=== PATIENT | female | born 1985 | race African-American/Black ===

== ENCOUNTER 2017-04-21 21:06 | Emergency (ER) | payer OTHER ==
[~2017-04-21] VITALS: Ht 167.6 cm; Wt 80.7 kg
--- NOTE | ~2017-04-21 | EKG ---
[address] [address] ELECTROCARDIOGRAM REPORT Name: BHUMIKAMICK JENNY Room #: DEP [id number] Admission: 04/21/17 Attend Phys: Discharge: 04/22/17 Date of : 89 Report #: [id number] THIS REPORT FOR: //name// [facility] ED Test Date: 2017-04-21 Test Time: 22:06:30 Pat Name: MICK BAI Department: Room: Gender: F Sales Expert: SHALOM : 1985 Requested By: Michel Banks Order Number: [id number] MD: Daren Blum Measurements Intervals [place] Rate: 67 P: 41 PA: 158 QRS: 14 QRSD: 85 T: 27 QT: 391 QTc: 413 Interpretive Statements Sinus rhythm No previous ECG available for comparison Electronically Signed On 04-26-2017 21:46:17 CDT by Daren Blum [email or web address] <ELECTRONICALLY SIGNED> By: Daren Blum MD 04/26/17 2146 [id number] 2206 Daren Blum MD /REJI
[~2017-04-21 21:06] MED LIST: CIPROFLOXACIN500 M1 PO; COLACE100 MG PO; DIFLUCAN150 MG PO; FLAGYL500 MG PO; FOLIC ACID1 MG PO; IBUPROFEN 800800 MG PO; IBUPROFEN200 M2 PO; IRON325 PO; MACROBID 100 M100 M1 PO; NAPROSYN500 MG PO; NOHOMEMEDICATIONS; NORCO 5-325 TA1 EACH PO; NORFLEX100 MG PO; PROMETHAZINE-C120 ML PO; PYRIDIUM200 MG PO; TRAMADOL 50 MG50 MG PO; TRINATE TABLET1 TAB PO; Tamiflu PO
[2017-04-21 22:17] LABS: URINE BILIRUBIN NEGATIVE (Negative); URINE BLOOD 3+ (Negative); URINE COLOR YELLOW; URINE GLUCOSE-RANDOM* NEGATIVE (Negative); URINE KETONES NEGATIVE (Negative); URINE LEUKOCYTES-REFLEX NEGATIVE (Negative); URINE PROTEIN (DIPSTICK) 2+ (Negative); URINE SPECIFIC GRAVITY 1.015 (1.003-1.035); URINE UROBILINOGEN 0.2 E.U./dl (0.2-1.0)
[2017-04-21 22:24] LABS: AMP/METHAMP Negative (Negative); BARBITURATES Negative (Negative); BENZODIAZEPINES Negative (Negative); COCAINE Negative (Negative); METHADONE Negative (Negative); OPIATES Negative (Negative); PCP Negative (Negative); THC Negative (Negative)
[2017-04-21 22:25] LABS: ABSOLUTE NEUTROPHILS 3.3 thou/uL (1.4-8.2); BASOPHILS 0.3 % (0.0-2.0); EOSINOPHILS 1.6 % (0.0-3.0); HEMATOCRIT 34.8 % (37.0-47.0); HEMOGLOBIN 11.8 gm/dL (12.0-15.0); MCH 26.8 pg (26.0-34.0); MCV 78.7 fL (80.0-100.0); MONOCYTES 6.4 % (1.0-8.0); PLATELET COUNT 188 thou/uL (150-400); POLYS 45.7 % (36.0-66.0); RBC 4.42 mil/uL (4.20-5.00); RDW 14.9 % (10.5-14.5); WBC 7.2 thou/uL (4.0-11.0)
[2017-04-21 22:26] LABS: MANUAL DIFF NO
[2017-04-21 22:31] LABS: CASTS None Seen /LPF (None Seen); CRYSTALS None Seen /LPF (None Seen); SQUAMOUS 0-3 Few /LPF (0-3); URINE RBC 3-10 Few /HPF (0-2); URINE WBC-REFLEX None Seen /HPF (0-5)
[2017-04-21 22:33] LABS: ANION GAP 7 mmol/L (7-16); BUN 8 mg/dL (7-18); CALCIUM 9.2 mg/dL (8.5-10.1); CHLORIDE 104 mmol/L (98-107); CO2 26 mmol/L (21-32); CREATININE 0.7 mg/dL (0.6-1.0); GLUCOSE 94 mg/dL (74-106); POTASSIUM 3.9 mmol/L (3.5-5.1); SODIUM 137 mmol/L (136-145)
[2017-04-21 22:39] LABS: APTT 28.7 Seconds (24.5-32.8); PROTIME 9.5 Seconds (9.3-11.4)
[2017-04-21 22:44] LABS: ALBUMIN 3.6 g/dL (3.4-5.0); ALKALINE PHOSPHATASE 40 U/L (46-116); MAGNESIUM 1.6 mg/dL (1.8-2.4); NT-PRO BRAIN NAT PEPTIDE 8 pg/mL (<300); SGOT 30 U/L (15-37); SGPT 23 U/L (30-65); TOTAL BILIRUBIN 0.2 mg/dL (<0.1-1.0); TOTAL PROTEIN 8.1 g/dL (6.4-8.2); TROPONIN-I < 0.04 ng/mL (<0.04-0.07)
[2017-04-21] MEDS ORDERED: ATIVAN0.5 MG PO (23:41)
[2017-04-21 23:49] VITALS: BP 130/90
== END 2017-04-22 | disposition home or self-care (01) ==
LOC: ER 21:06
PROVIDERS: Emergency Medicine
DX: F41.9 Anxiety disorder, unspecified (principal); F10.99 Alcohol use, unspecified with unspecified alcohol-induced disorder; Z87.891 Personal history of nicotine dependence

== ENCOUNTER 2018-06-27 14:01 | Emergency (ER) | payer OTHER ==
[~2018-06-27] VITALS: Ht 167.6 cm; Wt 76.2 kg
[~2018-06-27 14:01] MED LIST changes: +ATIVAN0.5 MG PO
[2018-06-27 14:02] VITALS: BP 129/85
[2018-06-27] MEDS ORDERED: JUNEL FE 1-201 EACH PO (14:15)
[2018-06-27] MEDS ORDERED: NAPROSYN500 MG PO (14:47)
[2018-06-27] MEDS ORDERED: NORFLEX100 MG PO (14:47)
== END 2018-06-27 15:04 | disposition home or self-care (01) ==
LOC: ER 14:01
DX: J02.9 Acute pharyngitis, unspecified (principal); M43.6 Torticollis

== ENCOUNTER 2020-03-27 09:35 | Emergency (ER) | payer OTHER ==
[~2020-03-27] VITALS: Ht 167.6 cm; Wt 69.0 kg
[~2020-03-27 09:35] MED LIST changes: +JUNEL FE 1-201 EACH PO
[2020-03-27 09:42] VITALS: BP 127/84
[2020-03-27 10:35] LABS: ABSOLUTE NEUTROPHILS 2.7 thou/uL (1.4-8.2); BASOPHILS 0.5 % (0.0-2.0); EOSINOPHILS 0.7 % (0.0-3.0); HEMATOCRIT 36.4 % (37.0-47.0); HEMOGLOBIN 12.9 gm/dL (12.0-15.0); LYMPHOCYTES 33.2 % (24.0-44.0); MCH 30.1 pg (26.0-34.0); MCHC 35.4 g/dL (28.0-37.0); MCV 85.1 fL (80.0-100.0); MONOCYTES 7.1 % (1.0-8.0); POLYS 58.5 % (36.0-66.0); RBC 4.28 mil/uL (4.20-5.00); RDW 14.1 % (10.5-14.5); WBC 4.6 thou/uL (4.0-11.0)
[2020-03-27 10:45] LABS: ANION GAP 9 mmol/L (7-16); BUN 7 mg/dL (7-18); CALCIUM 8.8 mg/dL (8.5-10.1); CHLORIDE 103 mmol/L (98-107); CO2 25 mmol/L (21-32); CREATININE 0.7 mg/dL (0.6-1.0); GLUCOSE 91 mg/dL (74-106); POTASSIUM 3.5 mmol/L (3.5-5.1); SODIUM 137 mmol/L (136-145)
[2020-03-27 10:55] LABS: ALBUMIN 3.8 g/dL (3.4-5.0); SGOT 15 U/L (15-37); SGPT 15 U/L (30-65); TOTAL BILIRUBIN 0.5 mg/dL (0.2-1.0); TOTAL PROTEIN 7.9 g/dL (6.4-8.2); TROPONIN-I <0.06 ng/mL (<0.06)
[2020-03-27 10:59] LABS: APTT 31.9 Seconds (24.5-32.8)
[2020-03-27 11:28] LABS: PLATELET COUNT 184 thou/uL (150-400)
--- NOTE | 2020-03-27 16:37 | EKG ---
[facility] [place] [address] ELECTROCARDIOGRAM REPORT Name: MICK BAI Room #: 170-10 ADM IN M.R.#: [id number] Admission: 03/27/20 Attend Phys: Vinnie Briggs MD Discharge: Date of : 89 Report #: [id number] THIS REPORT FOR: cc: Aye Pham DNP, Mary E. DNP Lundgren, Craig H. MD [facility] ~ THIS REPORT FOR: //name// [facility] ED Test Date: 2020-03-27 Test Time: 10:21:57 Pat Name: MICK BAI Department: Room: 170 Gender: F Line Assembler: izzy : 1985 Requested By: Felton Iqbal Order Number: [id number] MD: Castro Sullivan Measurements Intervals [place] Rate: 66 P: 60 MS: 146 QRS: 38 QRSD: 80 T: 54 QT: 381 QTc: 400 Interpretive Statements Sinus rhythm Normal tracing Compared to ECG 04/21/2017 22:06:30 No significant changes Electronically Signed On 03-27-2020 16:36:57 CDT by Castro Sullivan [email or web address] <ELECTRONICALLY SIGNED> By: Castro Sullivan MD, [facility] 03/27/20 1636 1021 1021 Castro Sullivan MD, [facility] /EPI
[2020-03-27 17:54] VITALS: BP 143/79
--- NOTE | 2020-03-28 07:33 | NUR ---
ORDERS FOR EVAL AND TREAT HOWEVER Pt LEFT AMA FROM E.R.
--- NOTE | 2020-03-28 07:34 | NUR ---
PATIENT LEFT THE HOSPITAL AMA BEFORE O.T. EVALUATION WAS COMPLETED ORDERED.
--- NOTE | 2020-03-31 10:46 | HC ---
[facility] [place] [address] [place] [address] CONSULTATION Name: MICK BAI Room #: DEP Brie#: [id number] Admission: 03/27/20 Attend Phys: Discharge: 03/27/20 Date of : 89 Report #: [id number] THIS REPORT FOR: cc: Aye Pham DNP, Mary E. DNP Khosla, Parveen K. MD ~ CC: Aye Iqbal DATE OF SERVICE: 03/27/2020 HISTORY OF PRESENT ILLNESS: This is a 34-year-old female patient who was seen by me for somewhat of an unusual symptoms. History is not clearly defined. She tells me she has hypersensitivity in the left leg, mainly in the L5 distribution. Then, she tells me that she also had symptoms on the left upper extremity. Symptom in the lower extremities is going on for about couple of days. Symptom in the upper extremity is going on longer than that. She has a longstanding history of anxiety. She takes lorazepam for that. REVIEW OF SYSTEMS: Negative for any stroke in the past. She does not give any other symptoms to suggest multiple sclerosis. As mentioned above, she does have a history of anxiety. She is on control pills, but has not caused any problem according to her. Rest of the 14-point review of system was unremarkable. PAST MEDICAL HISTORY: Negative for any stroke. FAMILY HISTORY: Positive for early age stroke, but further history is not clear. SOCIAL HISTORY: The patient says she has history of smoking, but she drinks alcohol very occasionally. PHYSICAL EXAMINATION: Indicate that she is alert, responsive, able to follow simple and complex command. Her speech looks intact. Cranial nerve examination 2-12 does not appear to be showing any definite abnormality. Objectively when she gives a good effort, her sensation, reflexes and tone is symmetrical. She does not have any long tract sign and she does not have any hyperreflexia. Plantar is difficult to tell on both sides, but it is not upgoing. Her position sense is normal in the lower extremities. I could not look at the fundus. There is no meningeal sign. There is no carotid bruit. Blood pressure is about 129/72, respirations 19, pulse is 68. LABORATORY DATA: White count is 4.6. She did have a CT scan of the head that was reviewed and that showed no abnormality. [address] [address] CONSULTATION Name: MICK BAI JENNY Room #: DEP Brie#: [id number] Admission: 03/27/20 Attend Phys: Discharge: 03/27/20 Date of : 89 Report #: [id number] IMPRESSION: Difficult to form in this patient. I discussed with her that we will try to exclude anything serious like multiple sclerosis or radiculopathy. Symptoms can also be because of anxiety. However, symptoms are unilateral and focal and therefore organic pathology must be excluded before considering the diagnosis of anxiety even if she has a history of anxiety. Therefore, the plan is to exclude the possibility of MS and radiculopathy. That will be the main differential in this patient. I will suggest starting with an MRI of the brain and MRI of the lumbar spine. Further workup will depend upon the outcome. The patient has further question about staying. My feeling was that we should go ahead and do the work up since she is young as an inpatient, but the patient wanted to talk to Dr. Iqbal and he was with the patient. I asked the nurses to talk to the patient what she wants to do and go from there and the nurses are going to do that. They can also call them if they have any question. I recommended that she get the workup done as an inpatient, but she is competent to make her decision and see what she says and we will await her conversation with Dr. Iqbal. <ELECTRONICALLY SIGNED> By: Bryce Galarza MD 03/31/20 1046 1332 1346 Bryce Galarza MD /nt
== END 2020-03-27 17:55 | disposition left against medical advice (07) ==
LOC: ER 09:35 → EROBS 14:28 → ER 14:28 → EROBS 17:55
PROVIDERS: Emergency Medicine
DX: R53.1 Weakness (principal); R20.0 Anesthesia of skin; R20.2 Paresthesia of skin; F41.9 Anxiety disorder, unspecified; F17.210 Nicotine dependence, cigarettes, uncomplicated; Z79.899 Other long term (current) drug therapy

== ENCOUNTER → 2020-08-07 | Outpatient (CLI) | payer OTHER | LOC: LAB 10:40 | PROVIDERS: ATTEND Nurse Practitioner | DX: Z20.828 Contact with and (suspected) exposure to other viral communicable diseases (principal) ==

== ENCOUNTER 2021-05-29 05:53 | Emergency (ER) | payer OTHER ==
[~2021-05-29] VITALS: Ht 167.6 cm; Wt 69.0 kg
[2021-05-29] MEDS ORDERED: EPIPEN 2-P0.3 MG/0.3 IM (10:11)
[2021-05-29 10:12] VITALS: BP 129/90
== END 2021-05-29 10:12 | disposition home or self-care (01) ==
LOC: ER 05:53
DX: L50.9 Urticaria, unspecified (principal); R22.0 Localized swelling, mass and lump, head; T49.0X5A Adverse effect of local antifungal, anti-infective and anti-inflammatory drugs, initial encounter; Z79.899 Other long term (current) drug therapy; Z87.891 Personal history of nicotine dependence; Y92.89 Other specified places as the place of occurrence of the external cause